=== PATIENT | male | born 1950 | race Two or more races ===

== ENCOUNTER → 2024-03-31 | Outpatient (CLI) | payer MEDICARE ==
--- NOTE | 2024-03-31 08:21 | CT ---
EXAMINATION TYPE: CT abdomen pelvis wo con DATE OF EXAM: 03/31/2024 8:02 AM COMPARISON: None. CLINICAL INDICATION: Male, 73 years old with history of R31.0 HEMATURIA; HEMATURIA TECHNIQUE: Axial CT abdomen pelvis wo con;Sagittal and coronal reformats were created on a separate workstation. Contrast used: mL of , (none if empty) Oral contrast used: without Oral Contrast (none if empty) CT DLP: 423.6 mGycm, Automated exposure control for dose reduction was used. FINDINGS: LOWER CHEST: Large hiatal hernia ABDOMEN LIVER: Unremarkable GALLBLADDER AND BILE DUCTS: Unremarkable. PANCREAS: Unremarkable. SPLEEN: Unremarkable. ADRENAL GLANDS: Unremarkable. KIDNEYS AND URETERS: Left 4 mm nonobstructing calculus. No right renal calculi. No hydronephrosis. Ri ght probable renal cortical cyst. PELVIS BLADDER: Mild bladder wall thickening most proximal in the superior aspect. REPRODUCTIVE: Prostate is enlarged in size measuring 4.9 cm in transverse dimension. ABDOMEN & PELVIS STOMACH AND BOWEL: No evidence of bowel obstruction. Large hiatal hernia versus patulous esophagus, s cattered colonic diverticula. PERITONEUM/RETROPERITONEUM: No evidence of pneumoperitoneum or free fluid. VASCULATURE: No evidence of aortic aneurysm. MUSCULOSKELETAL: No acute osseous abnormalities LYMPH NODES: No gross evidence for lymphadenopathy. SOFT TISSUE/ABDOMINAL WALL: Bilateral fat-containing inguinal hernias. IMPRESSION: 1. Mild bladder wall thickening on the superior aspect. This can be due to is chronic bladder outlet obstruction due to prostatomegaly. If there is concern for malignancy consider CT urogram or direct visualization. 2. Aspect possibly due to prostatomegaly and chronic bladder outlet obstruction. 3. Left nonobstructing renal calculus. 4. Colonic diverticulosis. 5. Large hiatal hernia versus patulous esophagus, correlate for achalasia. 6. Prostatomegaly, correlate with serum PSA. [facility], , 03/31/2024 8:18 AM
== END | disposition home or self-care (01) ==
LOC: EDSEX 03-30 08:00 → RADCTMAIN 07:31
PROVIDERS: ATTEND Family Medicine
DX: R31.0 Gross hematuria (principal); K57.30 Diverticulosis of large intestine without perforation or abscess without bleeding; N20.0 Calculus of kidney; N40.0 Benign prostatic hyperplasia without lower urinary tract symptoms; N32.0 Bladder-neck obstruction; K40.20 Bilateral inguinal hernia, without obstruction or gangrene, not specified as recurrent
CPT/HCPCS: 74176

== ENCOUNTER → 2024-04-01 | Outpatient (CLI) | payer MEDICARE ==
[2024-04-01 13:05] LABS: Basophils # (A) 0.09 X 10*3/uL (0.00-0.10); Basophils % (A) 1.4 %; Eosinophils % (A) 6.1 %; HCT 48.8 % (39.6-50.0); HGB 15.9 g/dL (13.0-17.0); Lymphocytes # (A) 2.04 X 10*3/uL (0.90-5.00); MCH 29.6 pg (27.0-32.0); MCHC 32.6 g/dL (32.0-37.0); MCV 90.9 FL (80.0-97.0); Mean Platelet Volume 11.1 FL (9.5-12.2); Monocytes # (A) 0.72 X 10*3/uL (0.20-1.00); Monocytes % (A) 10.9 %; NRBC Per 100 WBC 0 X 10*3/uL (0.00-0.01); Neutrophils # (A) 3.27 X 10*3/uL (1.80-7.70); Neutrophils % (A) 49.7 %; Platelet Count 241 X 10*3/uL (140-440); RBC 5.37 X 10*6/uL (4.40-5.60); RDW 12.8 % (11.5-14.5); WBC 6.58 X 10*3/uL (4.50-10.00)
[2024-04-01 14:30] LABS: Chol/HDL Ratio 2.72 Ratio
[2024-04-01 14:31] LABS: ALT 24 U/L (10-49); AST 24 U/L (14-35); Albumin 4.6 g/dL (3.8-4.9); Albumin/Globulin Ratio 1.59 Ratio (1.60-3.17); Alkaline Phosphatase 110 U/L (41-126); BUN/Creat Ratio 18.92 Ratio (12.00-20.00); Blood Urea Nitrogen 22.7 mg/dL (9.0-27.0); Calcium 11.7 mg/dL (8.7-10.3); Carbon Dioxide 23.8 mmol/L (21.6-31.8); Chloride 102 mmol/L (96-109); Globulin 2.9 g/dL (1.6-3.3); Glucose 156 mg/dL (70-110); LDL Cholesterol,Calculated 82.9 mg/dL (0.0-131.0); Potassium 4.8 mmol/L (3.5-5.5); Sodium 136 mmol/L (135-145); Total Bilirubin 0.7 mg/dL (0.3-1.2); Total Protein 7.5 g/dL (6.2-8.2)
== END | disposition home or self-care (01) ==
LOC: LABWHC1 08:26
PROVIDERS: ATTEND Family Medicine
DX: E11.65 Type 2 diabetes mellitus with hyperglycemia (principal); Z79.899 Other long term (current) drug therapy
CPT/HCPCS: 36415; 80053; 80061; 82306; 82607; 83036; 84443; 85025

== ENCOUNTER → 2024-07-26 | Outpatient (CLI) | payer MEDICARE ==
--- NOTE | 2024-07-26 14:11 | CT ---
CT thorax with contrast. HISTORY: Lung opacity. COMPARISON: None. TECHNIQUE: Multiple thorax after the administration of IV contrast material. FINDINGS: There is partial intrathoracic stomach with a markedly patulous esophagus. There is a 5.5 mm extrapleural fissural nodule. There are no suspicious lung masses or nodules. There is no airspace consolidation or abnormal interstitial density There is no pleural effusion, pleural thickening or pneumothorax. The great vessels the chest are normal with no mediastinal, hilar or axillary adenopathy. There are no focal osseous lesions. IMPRESSION: 1. No suspicious lung mass or nodule. 2. No acute cardiopulmonary disease. 3. Partial intrathoracic stomach. [facility], Workstation: [email or web address], 07/26/2024 2:08 PM
== END | disposition home or self-care (01) ==
LOC: RADCTMAIN 13:16
PROVIDERS: ATTEND Student in an Organized Health Care Education/Training Program
DX: R91.8 Other nonspecific abnormal finding of lung field (principal)
CPT/HCPCS: 71260; Q9967